=== PATIENT | female | born 1985 | race Caucasian/White ===

== ENCOUNTER 2017-05-30 21:42 | Emergency (ER) | payer MEDICAID ==
[~2017-05-30] VITALS: Ht 162.6 cm; Wt 85.1 kg
[~2017-05-30 21:42] MED LIST: HYDR-3133 PO; PERM5CRE TOP; PRED20 PO
[2017-05-30 21:45] VITALS: BP 132/83; PULSE 116; RESP 16; TEMP 100; O2SAT 97
--- NOTE | 2017-05-30 22:06 | PD ---
HPI Chief Complaint: GI Complaint Time Seen by Provider: 21:51 Travel History International Travel<30 days: No Contact w/Intl Traveler<30days: No Traveled to known affect area: No History of Present Illness HPI 32-year-old female complains of earache, sore throat, coughing congestion, nausea vomiting, body aches, chills, vaginal bleeding. Patient states that the symptoms started 3 days ago. Patient states that the cough is persistent and productive. Patient has intermittent nausea vomiting. Patient states that she has lower abdominal cramping with vaginal bleeding for the past 2 days. Patient has an IUD in place. Patient denies any diarrhea. Patient denies any back pain. PFSH Past Medical History Medical History: Denies Significant Hx Diminished Hearing: No Tetanus Vaccination: > 5 Years Influenza Vaccination: No ?: Unknown : 2 Para: 1 : 1 Past Surgical History Tonsillectomy: Yes Social History Alcohol Use: Yes (OCCASIONAL) Tobacco Use: Yes (1/2 PPD) Substance Use: No Allergies-Medications (Allergen,Severity, Reaction): Coded Allergies: No Known Allergies (Verified Adverse Reaction, Unknown, 05/30/17) Reported Meds & Prescriptions Reported Meds & Active Scripts Active Elimite (Permethrin) 5 % Cr 60 Gm TOP DIRECTED PATIENT INSTRUCTIONS: THOROUGHLY MASSAGE ELIMITE (PERMETHRIN) 5% CREAM INTO THE SKIN FROM HEAD TO TOE COVERING ALL EXTERNAL BODY PARTS. THE CREAM SHOULD BE REMOVED BY WASHING (SHOWER OR BATH) 8 TO 14 HOURS AFTER APPLICATION. PATIENTS MAY EXPERIENCE ITCHING AFTER TREATMENT AND IS RARELY A SIGN OF TREATMENT FAILURE. Atarax (Hydroxyzine HCl) 25 Mg Tab 25 Mg PO TID Deltasone (Prednisone) 20 Mg Tab 60 Mg PO DAILY 5 Days Review of Systems General / Constitutional: Positive: Chills, No: Fever Eyes: No: Visual changes HENT: Positive: Sore Throat, Earache, No: Headaches Cardiovascular: No: Chest Pain or Discomfort Respiratory: Positive: Cough, No: Shortness of Breath Gastrointestinal: Positive: Nausea, Vomiting, Abdominal Pain Genitourinary: Positive: Vaginal Bleeding, No: Dysuria Musculoskeletal: No: Pain Skin: No Rash Neurologic: No: Weakness Psychiatric: No: Depression Endocrine: No: Polydipsia Hematologic/Lymphatic: No: Easy Bruising Physical Exam Narrative GENERAL: Well-nourished, well-developed patient. SKIN: Focused skin assessment warm/dry. HEAD: Normocephalic. EYES: No scleral icterus. No injection or drainage. TM left TM with mild effusion. TM mild erythematous. Throat: Mild erythematous. NECK: Supple, trachea midline. No JVD or lymphadenopathy. CARDIOVASCULAR: Regular rate and rhythm without murmurs, gallops, or rubs. RESPIRATORY: Breath sounds equal bilaterally. No accessory muscle use. GASTROINTESTINAL: Abdomen soft, nondistended. Patient has mild tenderness on palpation lower abdomen. No rebound tenderness. No mass. MUSCULOSKELETAL: No cyanosis, or edema. BACK: Nontender without obvious deformity. No CVA tenderness. VENDING MECHANIC exam: Patient has a small amount of old blood in the vaginal vault. IUD string seen at the cervical os. No cervical motion tenderness. Uterus is nonenlarged with mild tenderness on palpation. Mild left adnexal tenderness. No adnexal mass. Neurologic exam normal. Data Data Last Documented VS Vital Signs Date Time Temp Pulse Resp B/P (MAP) Pulse Ox O2 Delivery O2 Flow Rate FiO2 05/30/17 21:45 100.0 116 16 132/83 (99) 97 Orders Orders Urinalysis - C+S If Indicated (05/30/17 21:55) Influenzae A/B Antigen (05/30/17 21:55) Chest, Single Ap (05/30/17 21:55) Ed Urine Pregnancytest Poc (05/30/17 21:55) Labs Laboratory Tests Test 05/30/17 22:05 Urine Color YELLOW Urine Turbidity CLEAR Urine pH 6.0 Urine Specific [place] 1.032 Urine Protein TRACE mg/dL Urine Glucose (UA) NEG mg/dL Urine Ketones 15 mg/dL Urine Occult Blood LARGE Urine Nitrite NEG Urine Bilirubin NEG Urine Leukocyte Esterase TRACE Urine RBC 0-3 /hpf Urine WBC 0-2 /hpf Urine Squamous Epithelial Cells 0-5 /hpf Microscopic Urinalysis Comment CULT NOT INDICATED MDM Medical Decision Making Medical Screen Exam Complete: Yes Emergency Medical Condition: Yes Interpretation(s) Last Impressions Chest X-Ray 05/30/17 3323 Signed Impressions: Service Date/Time: Tuesday, May 30, 2017 22:09 - CONCLUSION: Normal examination. Ryan Avila MD UA is negative. Urine test negative. 23:58 PM. Influenza A antigen positive. Differential Diagnosis Differential diagnosis including viral syndrome, otitis media, pharyngitis, bronchitis, pneumonia, gastroenteritis, dysmenorrhea, threatened AB, ectopic . Narrative Course 32-year-old female with fever, earaches, sore throat, congestion, coughing, nausea vomiting and low abdominal pain and vaginal bleeding. Diagnosis Primary Impression: Influenza A Additional Impression: Dysmenorrhea Patient Instructions: General Instructions Additional Instructions: Take medications as directed. 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 Off work for 2 days. Med/Other Pt SpecificInfo: Prescription(s) given Scripts [Phenergan W Codein] No Conflict Check 10 ML PO Q8HR for Cough, #120 Prov: Devyn Guerra MD 05/31/17 Azithromycin (Zithromax Z-Dario) 250 Mg Dspk 250 MG PO DIRECTED for Infection, #1 DSPK 0 Refills 500 MG (2 tabs) day 1, then 1 tab days 2-5. Prov: Devyn Guerra MD 05/31/17 Fluconazole (Diflucan) 150 Mg Tab 150 MG PO ONCE for Infection, #1 TAB 0 Refills Prov: Devyn Guerra MD 05/31/17 Disposition: 01 DISCHARGE HOME Condition: Stable Devyn Guerra MD May 30, 2017 22:06
--- NOTE | 2017-05-30 22:28 | RADRPT ---
EXAM DATE/TIME: 05/30/2017 22:09 [facility] COMPARISON: No previous studies available for comparison. INDICATIONS : Fever, cough. MEDICAL HISTORY : None. SURGICAL HISTORY : None. ENCOUNTER: Initial ACUITY: 3 days PAIN SCORE: 0/10 LOCATION: Bilateral chest FINDINGS: A single view of the chest demonstrates the lungs to be symmetrically aerated without evidence of mas s, infiltrate or effusion. The cardiomediastinal contours are unremarkable. Osseous structures are intact. CONCLUSION: Normal examination. Ryan Avila MD on May 30, 2017 at 22:24 Board Certified Radiologist. This report was verified electronically.
[2017-05-30 22:47] LABS: BLOOD, URINE LARGE (NEG); GLUCOSE,URINE NEG (NEG); KETONE, URINE 15 mg/dL (NEG); NITRITE,URINE NEG (NEG); URINE LEUKOCYTE ESTERASE TRACE (NEG)
[2017-05-30 22:56] LABS: BILIRUBIN, URINE NEG (NEG)
[2017-05-30 22:58] LABS: RBC, URINE 0-3 /hpf (0-3); SQUAMOUS EPITHELIAL CELL URINE 0-5 /hpf (0-5); URINE COLOR YELLOW (YELLW/STRAW); WBC, URINE 0-2 /hpf (0-5)
[2017-05-31] MEDS ORDERED: DIFL150T PO (00:05)
[2017-05-31] MEDS ORDERED: PHENERGAN W CODEIN PO (00:05)
[2017-05-31] MEDS ORDERED: ZITHTAB PO (00:05)
[2017-05-31] MEDS ORDERED: ACETAMINOPHEN/CODEINE ELIX 120 MG/12 MG/5 ML CUP PO ONE (00:15)
[2017-05-31 00:16] VITALS: BP 128/74; PULSE 75; RESP 18; TEMP 99.2; O2SAT 98
== END 2017-05-31 00:18 | disposition home or self-care (01) ==
LOC: PHED 21:42
DX: J10.1 Influenza due to other identified influenza virus with other respiratory manifestations (principal); N94.6 Dysmenorrhea, unspecified; F17.200 Nicotine dependence, unspecified, uncomplicated
CPT/HCPCS: 71045; 81001; 84703; 87804; 99284